=== PATIENT | female | born 1950 | race Caucasian/White ===

== ENCOUNTER → 2019-08-25 09:04 | Outpatient (CLI) | payer MEDICARE, MEDICAID ==
[2015-10-24 08:32] VITALS: BMI 31.0
[~2019-08-25 09:04] MED LIST: GLUCOTROL 5 MG T5 MG PO; ONE A DAY VITAMIN; PLAVIX75 MG PO; PROTONIX20 MG PO; ZYRTEC10 MG PO
== END | disposition home or self-care (01) ==
LOC: D.CT 09:04
PROVIDERS: ATTEND Internal Medicine Gastroenterology
DX: R10.30 Lower abdominal pain, unspecified (principal); R63.4 Abnormal weight loss

== ENCOUNTER → 2019-12-12 12:05 | Outpatient (CLI) | payer MEDICARE, MEDICAID ==
[2015-10-24 08:32] VITALS: BMI 31.0
== END | disposition home or self-care (01) ==
LOC: D.MRI 12:05
PROVIDERS: ATTEND Orthopaedic Surgery
DX: M54.12 Radiculopathy, cervical region (principal)